=== PATIENT | female | born 1935 | race Caucasian/White ===

== ENCOUNTER 2017-03-28 10:30 | Day surgery (SDC) | payer BC, OTHER ==
[2017-03-12 13:15] VITALS: BMI 29.0
--- NOTE | 2017-03-12 13:44 | PAT Medication Instructions ---
Service Date Mar 12, 2017. Current Home Medication List Aspirin (Aspirin), 1-2 TABS PO TID PRN for Pain Felodipine (Plendil), 2.5 MG PO QAM Fish Oil (Fish Oil), 1 GM PO QAM Hydrochlorothiazide (Hctz), 25 MG PO QAM Lorazepam (Lorazepam), 1 MG PO Q6H PRN for Anxiety Multiple Minerals W/ Vitamins (Citracal Plus), 1 TAB PO QAM Ocuvite Preservision (Ocuvite Preservision), 1 TAB PO BID Omeprazole (Prilosec), 20 MG PO QAM Potassium Chloride (Micro-K Ext Rel), 20 MEQ PO BID Quinapril Hcl (Accupril), 1 TAB PO QAM Medication Instructions For Your Scheduled Surgery - Check with surgeon for instructions: Aspirin (Aspirin), 1-2 TABS PO TID PRN for Pain - Hold the following medications 2 weeks prior to surgery: Fish Oil (Fish Oil), 1 GM PO QAM - Hold the following medications the morning of surgery: Hydrochlorothiazide (Hctz), 25 MG PO QAM Multiple Minerals W/ Vitamins (Citracal Plus), 1 TAB PO QAM Ocuvite Preservision (Ocuvite Preservision), 1 TAB PO BID Potassium Chloride (Micro-K Ext Rel), 20 MEQ PO BID Quinapril Hcl (Accupril), 1 TAB PO QAM - Take the following medications the morning of surgery with a sip of water: Omeprazole (Prilosec), 20 MG PO QAM Lorazepam (Lorazepam), 1 MG PO Q6H PRN for Anxiety (if needed) Felodipine (Plendil), 2.5 MG PO QAM - Take the following medications as scheduled the night before surgery: Potassium Chloride (Micro-K Ext Rel), 20 MEQ PO BID Ocuvite Preservision (Ocuvite Preservision), 1 TAB PO BID Lorazepam (Lorazepam), 1 MG PO Q6H PRN for Anxiety (if needed) If you have any questions please call us at [phone] or [phone] or [phone]
--- NOTE | 2017-03-12 14:21 | DIAGNOSTIC IMAGING REPORT ---
CHEST PREADMISSION(PA/LAT) HISTORY: 81 years-old Female PAT preadmission exam without acute chest complaints. COMPARISON: Chest radiograph 04/12/2015 TECHNIQUE: Frontal and lateral views of the chest FINDINGS: Cardiac silhouette is within normal limits. There is tortuosity of the descending thoracic aorta. No pneumothorax, pleural effusion, focal airspace consolidation or overt pulmonary edema. There is subsegmental atelectasis/scarring of the lung bases. Lungs are mildly hyperinflated. Fusion hardware of the lumbar spine is partially imaged. There is 7 mm retrolisthesis of L1 on L2 and 4 mm retrolisthesis L2 on L3, likely degenerative in nature. IMPRESSION: No acute cardiopulmonary process. The above report was generated using voice recognition software. It may contain grammatical, syntax or spelling errors. Electronically signed by: Jack Alvarez M.D. 03/12/2017 2:20 PM Dictated Date/Time: 03/12/2017 2:15 PM
[2017-03-12 14:24] LABS: BASO % 0.6 %; BASO ABS # 0.04 K/uL (0-0.2); EOS % 2.4 %; HEMATOCRIT 38.5 % (37-47); IG% 0.2 %; LYMPH % 19.9 %; MEAN CORPUSCULAR HEMOGLOBIN 25.6 pg (25-34); MEAN CORPUSCULAR HGB CONC 30.9 g/dl (32-36); MEAN PLATELET VOLUME 11.2 fL (7.4-10.4); MONO % 8.3 %; NEUT % 68.6 %; PLATELET COUNT 260 K/uL (130-400); RED BLOOD COUNT 4.64 M/uL (4.2-5.4); WHITE BLOOD COUNT 6.54 K/uL (4.8-10.8)
[2017-03-12 14:24] LABS: URINE APPEARANCE CLEAR (CLEAR); URINE BILIRUBIN NEG (NEG); URINE COLOR YELLOW; URINE EPITHELIAL CELL AUTO 0-5 /lpf (0-5); URINE NITRITE POS (NEG); URINE SPECIFIC GRAVITY 1.015 (1.000-1.030); UROBILINOGEN NEG (NEG)
[2017-03-12 14:28] LABS: MANUAL MICROSCOPIC REQUIRED? NO; REVIEW REQ? NO
[2017-03-12 14:48] LABS: ANISOCYTOSIS PRESENT; COMPLETE YES
[2017-03-12 16:15] LABS: BUN/CREATININE RATIO 27.2 (10-20); CALCIUM 9.8 mg/dl (8.5-10.1); CREATININE 0.95 mg/dl (0.60-1.20); POTASSIUM 4.3 mmol/L (3.5-5.1)
[~2017-03-28] VITALS: Ht 162.6 cm; Wt 78.0 kg
[~2017-03-28 10:30] MED LIST: ASPI325T45 PO; ATV1 PO; CEFAZOLIN 1000MG/55 ML D5W IV SCH; FELO1TAB7 PO; HYDR25TA4 PO; LACTATED RINGER'S 1000ML 1,000 ML IV SCH; MULT-190 PO; MULT-663 PO; OMG3 PO; POTA-335 PO; PRLSR20 PO; QUIN40TA PO
[2017-03-28 11:00] VITALS: BP 163/99; PULSE 79; TEMP 36.9; O2SAT 96; Ht 162.6 cm; Wt 78.0 kg
[2017-03-28] MEDS ORDERED: FENTANYL CITRATE INJ 50 MCG/1 ML 2 ML VIAL ONE (12:15)
[2017-03-28] MEDS ORDERED: MIDAZOLAM HCL 1 MG/ML 2ML VIAL ONE (12:15)
--- NOTE | 2017-03-28 12:21 | History & Physical Bridge Note ---
H&P Re-Evaluation Bridge Note: I have examined the patient, reviewed the History & Physical and in the interval since the performance of the History & Physical I have noted the following changes of clinical significance: No changes noted
--- NOTE | 2017-03-28 12:22 | History and Physical ---
History & Physical Date Mar 28, 2017. Chief Complaint Left SI joint pain History of Present Illness The patient is a 81 year old female with complaints of chronic persistent left SI joint pain Past Medical/Surgical History Medical Problems: (1) Bladder cancer (2) GERD (gastroesophageal reflux disease) (3) H/O deep venous thrombosis (4) HTN (hypertension) (5) Lumbar stenosis with neurogenic claudication Surgical Problems: (1) H/O total cystectomy (2) H/O total cystectomy (3) S/P RIGOBERTO-BSO Additional History Hepatic Disease: No Endocrine Disorder: No Kidney Disease: No Hypertension: Yes Heart Disease: No Bleeding Tendencies: No Infectious Diseases: No Allergies Coded Allergies: No Known Allergies (Verified , 03/28/17) Home Medications Scheduled Felodipine (Plendil), 2.5 MG PO QAM Hydrochlorothiazide (Hctz), 25 MG PO QAM Multiple Minerals W/ Vitamins (Citracal Plus), 1 TAB PO QAM Ocuvite Preservision (Ocuvite Preservision), 1 TAB PO BID Omeprazole (Prilosec), 20 MG PO QAM Potassium Chloride (Micro-K Ext Rel), 20 MEQ PO BID Quinapril Hcl (Accupril), 1 TAB PO QAM Scheduled PRN Aspirin (Aspirin), 1-2 TABS PO TID PRN for Pain Lorazepam (Lorazepam), 1 MG PO Q6H PRN for Anxiety Physical Examination Skin: warm/dry, no rash Eyes: normal inspection, EOMI, sclerae normal ENT: normal ENT inspection, pharynx normal Head: normocephalic, atraumatic Neck: supple, no adenopathy, trachea midline Respiratory/Chest: lungs clear, normal breath sounds, no respiratory distress Cardiovascular: regular rate, rhythm, no edema, no murmur Abdomen / GI: normal bowel sounds, non tender Back: normal inspection Extremities: normal inspection, normal range of motion Neurologic/Psych: no motor/sensory deficits, alert, normal reflexes, oriented x 3 Diagnosis Left sacroiliitis Plan of Treatment Left SI joint fusion
[2017-03-28] MEDS ORDERED: SCOPOLAMINE 1.5 MG TDSY TD ONE ×2 (12:39→12:45)
[2017-03-28] MEDS ORDERED: BUPIVACAINE/EPINEPHRINE 0.5% MPF 1:200,000 30 ML VIAL ONE (12:54)
[2017-03-28] MEDS ORDERED: BACITRACIN 50000 UNIT VIAL ONE (12:54)
[2017-03-28] MEDS ORDERED: HYDROmorphone INJ 1 MG/ML SYR IV PRN ×2 (13:00→14:00)
[2017-03-28] MEDS ORDERED: FENTANYL CITRATE INJ 50 MCG/1 ML 2 ML VIAL IV PRN (13:00)
[2017-03-28] MEDS ORDERED: ATROPINE SULFATE 0.1 MG/ML 5ML SYR IV PRN (13:00)
[2017-03-28] MEDS ORDERED: ONDANSETRON INJ 2 MG/ML 2 ML VIAL IV PRN (13:00)
[2017-03-28] MEDS ORDERED: EpHEDrine SULFATE INJ 50 MG/ML AMP IV PRN (13:00)
[2017-03-28] MEDS ORDERED: HYDROmorphone INJ 2 MG/ML SYR/VIAL ONE (13:16)
[2017-03-28] MEDS ORDERED: LIDOCAINE HCL 2% 2 ML VIAL (20MG/ML) ONE (13:40)
[2017-03-28] MEDS ORDERED: ROCURONIUM BROMIDE 10 MG/ML 5 ML VIAL IV ONE (13:40)
[2017-03-28] MEDS ORDERED: KETOROLAC TROMETHAMINE 30 MG/ML VIAL ONE (13:40)
[2017-03-28] MEDS ORDERED: NEOSTIGMINE METHYLSULFATE 1 MG/ML 10ML VIAL ONE (13:40)
[2017-03-28] MEDS ORDERED: GLYCOPYRROLATE INJ 0.2 MG/ML VIAL ONE (13:40)
[2017-03-28] MEDS ORDERED: EpHEDrine SULFATE 50MG/5ML SYR ONE (13:40)
[2017-03-28] MEDS ORDERED: PROPOFOL IV EMULSION 10 MG/ML 20 ML VIAL IV ONE (13:40)
[2017-03-28] MEDS ORDERED: DEXAMETHASONE SOD INJ 4 MG/ML VIAL ONE (13:40)
[2017-03-28] MEDS ORDERED: ONDANSETRON INJ 2 MG/ML 2 ML VIAL ONE (13:40)
[2017-03-28] MEDS ORDERED: HYDR-5688 PO (13:53)
--- NOTE | 2017-03-28 13:55 | Discharge Instructions ---
Discharge Instructions Date of Service Mar 28, 2017. Admission Reason for Admission: Si Joint Dysfunction Discharge Discharge Diagnosis / Problem: sacralilitis Discharge Goals Goal(s): Decrease discomfort Activity Recommendations Activity Limitations: as noted below Lifting Limitations: no more than 5 pounds Shower/Bathe: may shower/bathe in 3 days Weightbearing Status: Left toe touch . Instructions / Follow-Up Instructions / Follow-Up Toe-touch weight-bearing with a walker when out of bed. Follow-up in 2 weeks for x-rays and evaluation. She may shower postop day 2 or 3. Current Hospital Diet Patient's current hospital diet: Discharge Diet Recommended Diet: Regular Diet Procedures Procedures Performed: Left Sacroiliac Joint Fusion Pending Studies Studies pending at discharge: no Medical Emergencies . Who to Call and When: Medical Emergencies: If at any time you feel your situation is an emergency, please call 911 immediately. . Non-Emergent Contact Non-Emergency issues call your: Primary Care Provider . "Provider Documentation" section prepared by Dmitriy Curiel. . VTE Core Measure Inpt VTE Proph given/why not?: Bruce Hinds, SCD's
[2017-03-28] MEDS ORDERED: ACETAMINOPHEN 325 MG TAB PO PRN (14:00)
[2017-03-28] MEDS ORDERED: HYDROCODONE/ACETAMOPHEN 5/325MG TAB PO PRN (14:00)
--- NOTE | 2017-03-28 14:00 | [facility] Operative Report ---
Operative Report Operative Date Mar 28, 2017. Pre-Operative Diagnosis Left sacroiliitis Post-Operative Diagnosis Left sacroiliitis Procedure(s) Performed Left SI joint fusion Surgeon Dr. Dmitriy Curiel Leaf Sucker Operator Surgeon(s) Freddie Reinoso PA-C Estimated Blood Loss 15mL Findings None Specimens None per surgeon Description of Procedure Patient was met with preoperatively case discussed all questions were addressed. After informed consent obtained patient was taken to the operative suite and intubated placed in a prone position the Blanco table the chest pads and hip bolsters. The left upper thigh and buttock was then prepped and draped in the normal sterile fashion. With the assistance of fluoroscopy in AP lateral inlet outlet views identified the left SI joint. Approximate 3 cm incision was placed on the left upper buttock and a K wire was placed proximally across the left SI joint. Verifying our. Position with fluoroscopy. Then dilated up to a 10 mm cannula in drilled across the SI joint. A 45 mm slotted JOSEPH-coated screw filled with locally harvested morcellized autograft and DBM was then inserted. Using outrigger guide a placed a distal K wire across the SI joint. Using the same technique a 40 mm screw was placed across the left SI joint. Again it was filled with DBM and locally harvested morcellized autograft. 1 final distal screw was also placed using the same technique. This was a 35 mm JOSEPH-coated slotted screw again filled with local graft and DBM. Verified a position in AP lateral inlet and outlet planes. The K wires were removed incision copious irrigated and closed closed with subcutaneous Vicryl and Monocryl for final skin closure. Steri- Strips sterile dressings placed. Patient we can taken to PACU stable condition. Please note Freddie record present throughout the entire procedure involved in patient positioning complex portions of the surgery and final skin closure. I attest to the content of the Intraoperative Record and any orders documented therein. Any exceptions are noted below.
--- NOTE | 2017-03-28 14:10 | DIAGNOSTIC IMAGING REPORT ---
PELVIS 1 OR 2 VIEWS ROUTINE CLINICAL HISTORY: LEFT SI JOINT FUSION COMPARISON STUDY: None. FINDINGS: Total fluoroscopy time was 1 minute and 21 seconds. 3 fluoroscopic spot images of the sacrum. There are 3 cannulated screws fusing the left sacroiliac joint. The hardware appears intact. IMPRESSION: Fluoroscopy provided for left sacroiliac joint fusion. Electronically signed by: Gt Arriola M.D. 03/28/2017 2:09 PM Dictated Date/Time: 03/28/2017 2:07 PM
[2017-03-28] MEDS ORDERED: ESMOLOL HCL 10 MG/ML 10 ML VIAL ONE (14:14)
[2017-03-28] MEDS ORDERED: HYDROmorphone INJ 2 MG/ML SYR/VIAL IV PRN (14:15)
[2017-03-28 14:55] VITALS: TEMP 36.2
--- NOTE | 2017-03-28 14:57 | Anesthesiology Progress Note ---
Anesthesia Post Op Note Date & Time Mar 28, 2017 at 14:57 Vital Signs Pain Intensity: 0 Vital Signs Past 12 Hours Date Time Temp Pulse Resp B/P (MAP) Pulse Ox O2 Delivery O2 Flow Rate FiO2 03/28/17 14:50 73 16 149/80 91 Room Air 03/28/17 14:40 72 16 137/79 91 Room Air 03/28/17 14:30 73 16 152/75 99 Oxymask 10 03/28/17 14:20 84 16 141/88 95 Oxymask 10 03/28/17 14:10 36.3 76 16 147/73 93 Oxymask 10 03/28/17 11:00 36.9 79 18 163/99 (120) 96 Room Air Notes Mental Status: alert / awake / arousable, participated in evaluation Pt Amnestic to Procedure: Yes Nausea / Vomiting: adequately controlled Pain: adequately controlled Airway Patency, RR, SpO2: stable & adequate BP & HR: stable & adequate Hydration State: stable & adequate Anesthetic Complications: no major complications apparent
[2017-03-28 15:00] VITALS: BP 148/75; PULSE 71; O2SAT 92
[2017-03-28 15:30] VITALS: BP 161/76; PULSE 69; O2SAT 92
[2017-03-28 16:00] VITALS: BP 137/80; PULSE 69; O2SAT 95
[2017-03-28] MEDS ORDERED: CHECK SCOPOLAMINE PATCH PLACEMENT SCH (16:00)
== END 2017-03-28 17:00 | disposition home or self-care (01) ==
LOC: C.ACU 10:30
PROVIDERS: ATTEND Orthopaedic Surgery Orthopaedic Surgery of the Spine
DX: M46.1 Sacroiliitis, not elsewhere classified (principal); I10 Essential (primary) hypertension; K21.9 Gastro-esophageal reflux disease without esophagitis; M48.062 Spinal stenosis, lumbar region with neurogenic claudication; Z85.51 Personal history of malignant neoplasm of bladder; Z86.718 Personal history of other venous thrombosis and embolism; Z79.82 Long term (current) use of aspirin; Z79.899 Other long term (current) drug therapy